=== PATIENT | female | born 1945 | race Caucasian/White ===

== ENCOUNTER 2016-07-20 19:25 | Emergency (ER) | payer MEDICARE, OTHER | END 2016-07-20 20:45 | disposition home or self-care (01) | LOC: ER1 19:25 | DX: S16.1XXA Strain of muscle, fascia and tendon at neck level, initial encounter (principal); X58.XXXA Exposure to other specified factors, initial encounter | CPT/HCPCS: 99283 ==

== ENCOUNTER 2016-07-23 19:45 | Emergency (ER) | payer MEDICARE, OTHER ==
[2016-07-23 21:08] LABS: HEMOGLOBIN 12.2 gm/dl (12.3-15.3); RED BLOOD COUNT 4.1 M/UL (4.00-5.10); WHITE BLOOD COUNT 7.8 K/UL (4.5-11.0)
== END 2016-07-24 00:02 | disposition home or self-care (01) ==
LOC: ER1 19:45
PROVIDERS: Family Medicine
DX: J11.1 Influenza due to unidentified influenza virus with other respiratory manifestations (principal); R50.9 Fever, unspecified; R26.2 Difficulty in walking, not elsewhere classified
CPT/HCPCS: 70450; 71010; 80053; 81001; 85025; 87040; 87086; 94664; 96374; 99283; J0696; J7030; J7050

== ENCOUNTER 2016-08-15 23:02 | Emergency (ER) | payer MEDICARE, OTHER ==
[2016-08-16 00:33] LABS: RED BLOOD COUNT 4.01 M/UL (4.00-5.10); WHITE BLOOD COUNT 10.8 K/UL (4.5-11.0)
== END 2016-08-16 02:00 | disposition home or self-care (01) ==
LOC: ER1 23:02
PROVIDERS: Physician Assistant
DX: K56.41 Fecal impaction (principal); I10 Essential (primary) hypertension; K21.9 Gastro-esophageal reflux disease without esophagitis; Z79.899 Other long term (current) drug therapy; Z79.82 Long term (current) use of aspirin
CPT/HCPCS: 36415; 74000; 80053; 81001; 83690; 85025; 99284

== ENCOUNTER 2016-10-03 20:44 | Emergency (ER) | payer MEDICARE, OTHER ==
[2016-10-03 22:34] LABS: HEMOGLOBIN 12.8 gm/dl (12.3-15.3); RED BLOOD COUNT 4.28 M/UL (4.00-5.10); WHITE BLOOD COUNT 7.2 K/UL (4.5-11.0)
== END 2016-10-04 03:35 | disposition home or self-care (01) ==
LOC: ER1 20:44
PROVIDERS: Emergency Medicine
DX: R07.89 Other chest pain (principal); M79.631 Pain in right forearm; E11.9 Type 2 diabetes mellitus without complications; I10 Essential (primary) hypertension
CPT/HCPCS: 36415; 71020; 73110; 80053; 82550; 82553; 83690; 83874; 84484; 85025; 93005; 99285

== ENCOUNTER 2016-10-19 18:19 | Inpatient (IN) | payer MEDICARE, OTHER ==
[~2016-10-19] VITALS: Ht 157.5 cm; Wt 70.5 kg
[2016-10-19 20:38] LABS: HEMOGLOBIN 12.7 gm/dl (12.3-15.3); RED BLOOD COUNT 4.22 M/UL (4.00-5.10); WHITE BLOOD COUNT 8.4 K/UL (4.5-11.0)
[2016-10-20] MEDS ORDERED: ASPIR-LOW81 MG PO (03:21)
[2016-10-20] MEDS ORDERED: METOPROLOL TART50 MG PO (03:22)
[2016-10-20] MEDS ORDERED: JANUVIA 100 MG100 MG PO (03:22)
[2016-10-20] MEDS ORDERED: RANEXA500 MG PO (03:23)
[2016-10-20] MEDS ORDERED: SIMVASTATIN20 MG PO (03:23)
[2016-10-20] MEDS ORDERED: NEURONTIN 400400 MG PO (03:24)
[2016-10-20] MEDS ORDERED: COLACE 100MG C100 MG PO (03:24)
[2016-10-20] MEDS ORDERED: SYNTHROID50 MCG PO (03:24)
[2016-10-20] MEDS ORDERED: PROCTOZONE-HC30 GM PR (03:25)
[2016-10-20] MEDS ORDERED: VENTOLIN HFA 66.7 GM INH (03:26)
[2016-10-20 07:12] LABS: HEMOGLOBIN 12.8 gm/dl (12.3-15.3); RED BLOOD COUNT 4.23 M/UL (4.00-5.10); WHITE BLOOD COUNT 9.3 K/UL (4.5-11.0)
[2016-10-20] MEDS ORDERED: HYDROCHLOROTHIA25 MG PO (20:31)
[2016-10-20] MEDS ORDERED: NORVASC 5 MG TAB5 MG PO (20:36)
== END 2016-10-20 20:50 | disposition home or self-care (01) | DRG 305 ==
LOC: ER1 18:19 → ZEROF 22:30 → M/S 22:30
PROVIDERS: Emergency Medicine; ADMIT Internal Medicine
DX: I16.0 Hypertensive urgency (principal); R07.9 Chest pain, unspecified; E78.5 Hyperlipidemia, unspecified; E11.9 Type 2 diabetes mellitus without complications; I10 Essential (primary) hypertension; Z90.710 Acquired absence of both cervix and uterus; Z90.49 Acquired absence of other specified parts of digestive tract; E05.90 Thyrotoxicosis, unspecified without thyrotoxic crisis or storm
CPT/HCPCS: ECHO; 36415; 71010; 80048; 80053; 80061; 82550; 82553; 82962; 83735; 83874; 83880; 84100; 84439; 84443; 84484; 85025; 93005; 93306; 96374; 96376; 99285; J1650

== ENCOUNTER 2020-08-08 16:35 | Inpatient (IN) | payer MEDICARE, OTHER ==
[~2020-08-08] VITALS: Ht 157.5 cm; Wt 59.0 kg
[~2020-08-08 16:35] MED LIST: ANTIVERT 25MG T25 MG PO; ASPIR-LOW81 MG PO; CLEOCIN HCL300 MG PO; COLACE 100MG C100 MG PO; DOXYCYCLINE HY100 M2 PO; FLEXERIL 10 MG10 MG PO; GLIPIZIDE ER5 MG PO; HYDROCHLOROTHIA25 MG PO; IBUPROFEN400 MG PO; IMDUR ER TAB 3030 MG PO; JANUVIA 100 MG100 MG PO; JANUVIA100 MG PO; LASIX20 MG PO; LEVEMIR FL100 UNIT/1 SQ; MEDROL DOSEPAK 24 MG PO; METOPROLOL SUCC50 MG PO; NEURONTIN400 MG PO; NORVASC 5 MG TAB5 MG PO; OMNICEF 300 MG300 MG PO; PREDNISONE20 MG PO; PROCTOZONE-HC30 GM PR; RANEXA500 MG PO; SIMVASTATIN20 MG PO; SYNTHROID50 MCG PO; TOPROL XL25 MG PO; VENTOLIN HFA 66.7 GM INH; ZANTAC300 MG PO; ZOFRAN 4 MG TAB4 MG PO
[2020-08-08 17:34] LABS: HEMOGLOBIN 10.5 gm/dl (12.3-15.3); RED BLOOD COUNT 3.68 M/UL (4.00-5.10); WHITE BLOOD COUNT 12.2 K/UL (4.5-11.0)
[2020-08-08 18:06] LABS: BUN/CREATININE RATIO 14 (0-10)
[2020-08-08] MEDS ORDERED: CRESTOR40 MG PO (20:18)
[2020-08-08] MEDS ORDERED: LOPRESSOR 25 MG25 MG PO (20:20)
[2020-08-08] MEDS ORDERED: METHIMAZOLE5 MG PO (20:26)
[2020-08-08] MEDS ORDERED: LASIX TAB 20 MG20 MG PO (20:27)
[2020-08-08] MEDS ORDERED: ISOSORBIDE MONO30 MG PO (20:27)
[2020-08-08] MEDS ORDERED: NOVOLIN N100 UNIT/2 SQ (20:28)
[2020-08-08] MEDS ORDERED: TRESIBA FL100 UNIT/1 SQ (20:29)
[2020-08-08] MEDS ORDERED: HYDROCODON-ACE1 EAC4 PO (20:33)
[2020-08-09 03:45] LABS: HEMOGLOBIN 9.8 gm/dl (12.3-15.3); RED BLOOD COUNT 3.51 M/UL (4.00-5.10); WHITE BLOOD COUNT 10.4 K/UL (4.5-11.0)
[2020-08-10 04:01] LABS: HEMOGLOBIN 9.1 gm/dl (12.3-15.3); RED BLOOD COUNT 3.26 M/UL (4.00-5.10); WHITE BLOOD COUNT 10.4 K/UL (4.5-11.0)
[2020-08-11 02:44] LABS: RED BLOOD COUNT 3.21 M/UL (4.00-5.10); WHITE BLOOD COUNT 10.1 K/UL (4.5-11.0)
[2020-08-12 03:29] LABS: HEMOGLOBIN 9.5 gm/dl (12.3-15.3); RED BLOOD COUNT 3.37 M/UL (4.00-5.10); WHITE BLOOD COUNT 12.6 K/UL (4.5-11.0)
[2020-08-13 06:31] LABS: HEMOGLOBIN 9.4 gm/dl (12.3-15.3); RED BLOOD COUNT 3.39 M/UL (4.00-5.10); WHITE BLOOD COUNT 11.4 K/UL (4.5-11.0)
[2020-08-14 05:56] LABS: HEMOGLOBIN 9.5 gm/dl (12.3-15.3); RED BLOOD COUNT 3.4 M/UL (4.00-5.10); WHITE BLOOD COUNT 9.6 K/UL (4.5-11.0)
[2020-08-14] MEDS ORDERED: ZOFRAN4 MG PO (17:17)
[2020-08-14] MEDS ORDERED: DEX4 GLUCOSE4 GM PO (17:17)
[2020-11-10] MEDS ORDERED: TRESIBA FL100 UNIT/1 SQ (10:20)
== END 2020-08-14 22:10 | disposition home or self-care (01) | DRG 660 ==
LOC: ER1 16:35 → CDU 18:43 → M/S 18:43
PROVIDERS: Emergency Medicine; Internal Medicine; Physician Assistant; Urology; ADMIT Internal Medicine
PROC: BT1D1ZZ Fluoroscopy of Right Kidney, Ureter and Bladder using Low Osmolar Contrast (ICD-10-PCS; 2020-08-14)
PROC: 0TJ98ZZ Inspection of Ureter, Via Natural or Artificial Opening Endoscopic (ICD-10-PCS; 2020-08-14)
PROC: 0T768DZ Dilation of Right Ureter with Intraluminal Device, Via Natural or Artificial Opening Endoscopic (ICD-10-PCS; principal; 2020-08-14 15:45)
DX: N13.6 Pyonephrosis (principal); E87.1 Hypo-osmolality and hyponatremia; I69.351 Hemiplegia and hemiparesis following cerebral infarction affecting right dominant side; N17.9 Acute kidney failure, unspecified; N18.30 Chronic kidney disease, stage 3 unspecified; R19.7 Diarrhea, unspecified; D63.1 Anemia in chronic kidney disease; E11.22 Type 2 diabetes mellitus with diabetic chronic kidney disease; Z20.822 Contact with and (suspected) exposure to COVID-19; M19.90 Unspecified osteoarthritis, unspecified site; J44.9 Chronic obstructive pulmonary disease, unspecified; E86.0 Dehydration; E05.90 Thyrotoxicosis, unspecified without thyrotoxic crisis or storm; K64.8 Other hemorrhoids; L89.159 Pressure ulcer of sacral region, unspecified stage; E11.649 Type 2 diabetes mellitus with hypoglycemia without coma; I12.9 Hypertensive chronic kidney disease with stage 1 through stage 4 chronic kidney disease, or unspecified chronic kidney disease; E78.5 Hyperlipidemia, unspecified; Z99.3 Dependence on wheelchair; Z79.4 Long term (current) use of insulin; Z98.51 Tubal ligation status; Z80.1 Family history of malignant neoplasm of trachea, bronchus and lung; Z90.710 Acquired absence of both cervix and uterus; Z90.49 Acquired absence of other specified parts of digestive tract; Z88.6 Allergy status to analgesic agent; Z79.82 Long term (current) use of aspirin; Z87.440 Personal history of urinary (tract) infections
CPT/HCPCS: 36415; 71045; 80048; 80053; 81001; 82436; 82550; 82553; 82570; 82728; 82962; 83036; 83540; 83550; 83735; 83874; 83935; 84133; 84156; 84300; 84439; 84443; 84484; 85025; 85027; 87040; 87086; 93005; 96365; 99285; C1769; C1894; C2617; J0696; J1100; J1650; J2405; J2704; J3010; J7030; J7120; Q9962; U0002

== ENCOUNTER 2020-08-16 13:09 | Emergency (ER) | payer MEDICARE, OTHER ==
[~2020-08-16 13:09] MED LIST changes: +CRESTOR40 MG PO; +DEX4 GLUCOSE4 GM PO; +HYDROCODON-ACE1 EAC4 PO; +ISOSORBIDE MONO30 MG PO; +LASIX TAB 20 MG20 MG PO; +LOPRESSOR 25 MG25 MG PO; +METHIMAZOLE5 MG PO; +NOVOLIN N100 UNIT/2 SQ; +TRESIBA FL100 UNIT/1 SQ; +ZOFRAN4 MG PO
[2020-08-16 15:31] LABS: HEMOGLOBIN 9.5 gm/dl (12.3-15.3); RED BLOOD COUNT 3.34 M/UL (4.00-5.10); WHITE BLOOD COUNT 15.4 K/UL (4.5-11.0)
[2020-11-10] MEDS ORDERED: TRESIBA FL100 UNIT/1 SQ (10:20)
== END 2020-08-16 17:15 | disposition home or self-care (01) ==
LOC: ER1 13:09
PROVIDERS: Family Medicine
DX: N20.1 Calculus of ureter (principal); E78.5 Hyperlipidemia, unspecified; E11.9 Type 2 diabetes mellitus without complications; I10 Essential (primary) hypertension; Z88.5 Allergy status to narcotic agent; D72.829 Elevated white blood cell count, unspecified; N18.9 Chronic kidney disease, unspecified; E87.6 Hypokalemia
CPT/HCPCS: 74019; 80053; 81001; 83690; 85025; 87086

== ENCOUNTER 2020-08-18 13:07 | Inpatient (IN) | payer MEDICARE, OTHER ==
[~2020-08-18] VITALS: Ht 157.5 cm; Wt 57.2 kg
[2020-08-18 15:02] LABS: HEMOGLOBIN 9.4 gm/dl (12.3-15.3); RED BLOOD COUNT 3.3 M/UL (4.00-5.10)
[2020-08-18 15:07] LABS: WHITE BLOOD COUNT 18.2 K/UL (4.5-11.0)
[2020-08-19 06:38] LABS: HEMOGLOBIN 8.8 gm/dl (12.3-15.3); RED BLOOD COUNT 3.09 M/UL (4.00-5.10); WHITE BLOOD COUNT 14.4 K/UL (4.5-11.0)
[2020-08-20 05:27] LABS: HEMOGLOBIN 8.5 gm/dl (12.3-15.3); RED BLOOD COUNT 3.01 M/UL (4.00-5.10); WHITE BLOOD COUNT 12.5 K/UL (4.5-11.0)
[2020-08-21 04:48] LABS: HEMOGLOBIN 8.3 gm/dl (12.3-15.3); RED BLOOD COUNT 2.92 M/UL (4.00-5.10); WHITE BLOOD COUNT 10.9 K/UL (4.5-11.0)
[2020-08-21] MEDS ORDERED: CHRONULAC20 GM/30 M PO (11:41)
[2020-08-21] MEDS ORDERED: FLORASTOR250 MG PO (11:55)
[2020-08-21] MEDS ORDERED: AMPICILLIN 500500 MG PO (11:55)
[2020-08-21] MEDS ORDERED: FERROUS SULFAT325 M2 PO (12:09)
--- NOTE | 2020-08-21 14:56 | NUR ---
PATIENT AND DAUGHTER DENIED NEED FOR HOME HEALTH OF ANY KIND, AND REFUSED TO HAVE HOME HEALTH.
[2020-11-10] MEDS ORDERED: TRESIBA FL100 UNIT/1 SQ (10:20)
== END 2020-08-21 14:28 | disposition home or self-care (01) | DRG 698 ==
LOC: ER1 13:07 → CDU 20:10 → M/S 08-19 08:35
PROVIDERS: Emergency Medicine; Internal Medicine; ADMIT Internal Medicine
DX: T83.592A Infection and inflammatory reaction due to indwelling ureteral stent, initial encounter (principal); A41.9 Sepsis, unspecified organism; N39.0 Urinary tract infection, site not specified; I69.351 Hemiplegia and hemiparesis following cerebral infarction affecting right dominant side; E44.0 Moderate protein-calorie malnutrition; Y83.8 Other surgical procedures as the cause of abnormal reaction of the patient, or of later complication, without mention of misadventure at the time of the procedure; E03.9 Hypothyroidism, unspecified; E66.9 Obesity, unspecified; K59.00 Constipation, unspecified; D50.9 Iron deficiency anemia, unspecified; L89.152 Pressure ulcer of sacral region, stage 2; E87.6 Hypokalemia; N18.9 Chronic kidney disease, unspecified; I12.9 Hypertensive chronic kidney disease with stage 1 through stage 4 chronic kidney disease, or unspecified chronic kidney disease; E78.5 Hyperlipidemia, unspecified; D63.1 Anemia in chronic kidney disease; E11.22 Type 2 diabetes mellitus with diabetic chronic kidney disease; G89.29 Other chronic pain; Z98.51 Tubal ligation status; Z98.890 Other specified postprocedural states; Z87.891 Personal history of nicotine dependence; Z80.1 Family history of malignant neoplasm of trachea, bronchus and lung; Z68.23 Body mass index [BMI] 23.0-23.9, adult
CPT/HCPCS: 36415; 71045; 74019; 80048; 80053; 81001; 82550; 82553; 82607; 82746; 82962; 83540; 83550; 83605; 83690; 83735; 83874; 83880; 84100; 84132; 84439; 84443; 84484; 85025; 85610; 85730; 86140; 87040; 87077; 87086; 87186; 96365; 97110-GP-CQ; 97162; 97166; 97530-GP-CQ; 99284; 99285; J0696; J1650; J3370; J7030; J7070; U0002

== ENCOUNTER 2020-09-16 23:11 | Inpatient (IN) | payer MEDICARE, OTHER ==
[~2020-09-16] VITALS: Ht 157.5 cm; Wt 57.6 kg
[~2020-09-16 23:11] MED LIST changes: +AMPICILLIN 500500 MG PO; +CHRONULAC20 GM/30 M PO; +FERROUS SULFAT325 M2 PO; +FLORASTOR250 MG PO
[2020-09-17 00:50] LABS: RED BLOOD COUNT 3.78 M/UL (4.00-5.10); WHITE BLOOD COUNT 10.5 K/UL (4.5-11.0)
[2020-09-17] MEDS ORDERED: IRON325 M1 PO (10:17)
[2020-09-17] MEDS ORDERED: VITAMIN C 500500 MG PO (10:21)
[2020-09-17] MEDS ORDERED: AUGMENTIN 500-500 MG PO (10:21)
[2020-09-19 05:05] LABS: HEMOGLOBIN 10.4 gm/dl (12.3-15.3); RED BLOOD COUNT 3.68 M/UL (4.00-5.10); WHITE BLOOD COUNT 7.7 K/UL (4.5-11.0)
[2020-09-19 05:09] LABS: BUN/CREATININE RATIO 16 (0-10)
[2020-09-19] MEDS ORDERED: BACTRIM DS TAB1 EACH PO (09:21)
[2020-09-19] MEDS ORDERED: NOVOLIN N100 UNIT/2 SQ (09:25)
[2020-09-19] MEDS ORDERED: TRESIBA FL100 UNIT/1 SQ (09:25)
[2020-09-19] MEDS ORDERED: LEVOFLOXACIN750 MG PO (09:36)
--- NOTE | 2020-09-19 12:54 | NUR ---
1254: VERBAL INDERSTANDING NOTED BY DAUGHTER MORIS GODINEZ, OF HOW TO CLEAN AROUND WANG CATHETER UNTIL REMOVED BY DR BLACKWOOD'S OFFICE.
[2020-11-10] MEDS ORDERED: TRESIBA FL100 UNIT/1 SQ (10:20)
== END 2020-09-19 13:18 | disposition home or self-care (01) | DRG 698 ==
LOC: ER1 23:11 → CDU 09-17 03:44 → MED SURG 4 09-17 23:01
PROVIDERS: Family Medicine; Internal Medicine; ADMIT Internal Medicine
DX: T83.592A Infection and inflammatory reaction due to indwelling ureteral stent, initial encounter (principal); J15.9 Unspecified bacterial pneumonia; N17.9 Acute kidney failure, unspecified; E87.1 Hypo-osmolality and hyponatremia; Z16.11 Resistance to penicillins; G93.40 Encephalopathy, unspecified; N13.6 Pyonephrosis; Y83.8 Other surgical procedures as the cause of abnormal reaction of the patient, or of later complication, without mention of misadventure at the time of the procedure; B95.2 Enterococcus as the cause of diseases classified elsewhere; E11.22 Type 2 diabetes mellitus with diabetic chronic kidney disease; E87.5 Hyperkalemia; R33.9 Retention of urine, unspecified; I12.9 Hypertensive chronic kidney disease with stage 1 through stage 4 chronic kidney disease, or unspecified chronic kidney disease; E05.90 Thyrotoxicosis, unspecified without thyrotoxic crisis or storm; N18.30 Chronic kidney disease, stage 3 unspecified; E66.9 Obesity, unspecified; I27.20 Pulmonary hypertension, unspecified; Z20.822 Contact with and (suspected) exposure to COVID-19; E78.5 Hyperlipidemia, unspecified; Z86.73 Personal history of transient ischemic attack (TIA), and cerebral infarction without residual deficits; Z79.4 Long term (current) use of insulin; Z90.710 Acquired absence of both cervix and uterus; Y92.89 Other specified places as the place of occurrence of the external cause; Z90.49 Acquired absence of other specified parts of digestive tract; Z98.51 Tubal ligation status; Z88.6 Allergy status to analgesic agent; Z80.3 Family history of malignant neoplasm of breast; Z80.0 Family history of malignant neoplasm of digestive organs; Z83.3 Family history of diabetes mellitus; Z83.6 Family history of other diseases of the respiratory system; Z84.89 Family history of other specified conditions; Z87.891 Personal history of nicotine dependence; Z68.23 Body mass index [BMI] 23.0-23.9, adult
CPT/HCPCS: 0240U; 36415; 71045; 74018; 80048; 80053; 81001; 82962; 83605; 83735; 84100; 85025; 85027; 87040; 87077; 87086; 87186; 93005; 96365; 96375; 97161; 97166; 99285; J0360; J1650; J2185

== ENCOUNTER 2020-11-09 18:49 | Inpatient (IN) | payer MEDICARE, OTHER ==
[~2020-11-09] VITALS: Ht 157.5 cm; Wt 57.2 kg
[~2020-11-09 18:49] MED LIST changes: +AUGMENTIN 500-500 MG PO; +BACTRIM DS TAB1 EACH PO; -CRESTOR40 MG PO; +IRON325 M1 PO; +LEVOFLOXACIN750 MG PO; -NEURONTIN400 MG PO; +VITAMIN C 500500 MG PO
[2020-11-09 20:04] LABS: HEMOGLOBIN 12.3 gm/dl (12.3-15.3); RED BLOOD COUNT 4.04 M/UL (4.00-5.10); WHITE BLOOD COUNT 12.4 K/UL (4.5-11.0)
[2020-11-09 21:11] LABS: BUN/CREATININE RATIO 15 (0-10)
[2020-11-10 02:24] LABS: HEMOGLOBIN 10.9 gm/dl (12.3-15.3); WHITE BLOOD COUNT 9.4 K/UL (4.5-11.0)
[2020-11-10 02:27] LABS: RED BLOOD COUNT 3.63 M/UL (4.00-5.10)
[2020-11-10 02:43] LABS: BUN/CREATININE RATIO 15 (0-10)
[2020-11-11 05:14] LABS: HEMOGLOBIN 11.9 gm/dl (12.3-15.3); RED BLOOD COUNT 3.97 M/UL (4.00-5.10); WHITE BLOOD COUNT 7.6 K/UL (4.5-11.0)
[2020-11-12 03:34] LABS: HEMOGLOBIN 11.1 gm/dl (12.3-15.3); RED BLOOD COUNT 3.71 M/UL (4.00-5.10); WHITE BLOOD COUNT 7.6 K/UL (4.5-11.0)
[2020-11-13 03:54] LABS: HEMOGLOBIN 11.4 gm/dl (12.3-15.3); RED BLOOD COUNT 3.83 M/UL (4.00-5.10); WHITE BLOOD COUNT 8.9 K/UL (4.5-11.0)
[2020-11-13] MEDS ORDERED: LEVOFLOXACIN750 MG PO (17:24)
--- NOTE | 2020-11-13 17:44 | NUR ---
PATIENT DISCHARGED WITH WANG CATHETER PER DR. LEON.
[2021-01-06] MEDS ORDERED: NEURONTIN800 MG PO (03:24)
== END 2020-11-13 18:37 | disposition home or self-care (01) | DRG 660 ==
LOC: ER1 18:49 → M/S 22:59 → CDU 22:59 → M/S 11-10 09:00
PROVIDERS: Internal Medicine; Physician Assistant; Urology; ADMIT Internal Medicine
PROC: 0T768DZ Dilation of Right Ureter with Intraluminal Device, Via Natural or Artificial Opening Endoscopic (ICD-10-PCS; 2020-11-13)
PROC: BT1D1ZZ Fluoroscopy of Right Kidney, Ureter and Bladder using Low Osmolar Contrast (ICD-10-PCS; 2020-11-13)
PROC: 0TP98DZ Removal of Intraluminal Device from Ureter, Via Natural or Artificial Opening Endoscopic (ICD-10-PCS; principal; 2020-11-13 14:00)
DX: T83.518A Infection and inflammatory reaction due to other urinary catheter, initial encounter (principal); N13.6 Pyonephrosis; I69.354 Hemiplegia and hemiparesis following cerebral infarction affecting left non-dominant side; N17.9 Acute kidney failure, unspecified; Z20.822 Contact with and (suspected) exposure to COVID-19; E11.22 Type 2 diabetes mellitus with diabetic chronic kidney disease; E78.5 Hyperlipidemia, unspecified; E86.0 Dehydration; R33.9 Retention of urine, unspecified; I12.9 Hypertensive chronic kidney disease with stage 1 through stage 4 chronic kidney disease, or unspecified chronic kidney disease; E05.90 Thyrotoxicosis, unspecified without thyrotoxic crisis or storm; N18.30 Chronic kidney disease, stage 3 unspecified; R26.9 Unspecified abnormalities of gait and mobility; F01.50 Vascular dementia, unspecified severity, without behavioral disturbance, psychotic disturbance, mood disturbance, and anxiety; R63.4 Abnormal weight loss; I27.20 Pulmonary hypertension, unspecified; N31.9 Neuromuscular dysfunction of bladder, unspecified; B95.2 Enterococcus as the cause of diseases classified elsewhere; Y84.6 Urinary catheterization as the cause of abnormal reaction of the patient, or of later complication, without mention of misadventure at the time of the procedure; E03.9 Hypothyroidism, unspecified; J44.9 Chronic obstructive pulmonary disease, unspecified; B96.20 Unspecified Escherichia coli [E. coli] as the cause of diseases classified elsewhere; B96.89 Other specified bacterial agents as the cause of diseases classified elsewhere; Z79.4 Long term (current) use of insulin; Z87.440 Personal history of urinary (tract) infections; Z95.1 Presence of aortocoronary bypass graft; Z90.710 Acquired absence of both cervix and uterus; Z98.51 Tubal ligation status; Z83.3 Family history of diabetes mellitus; Z79.82 Long term (current) use of aspirin; Z90.49 Acquired absence of other specified parts of digestive tract
CPT/HCPCS: 36415; 70450; 71045; 80048; 80053; 81001; 82550; 82553; 82962; 83605; 83690; 83735; 83874; 84100; 84439; 84443; 84484; 85025; 86140; 87077; 87086; 87186; 96365; 96376; 99285; C1769; C2617; G0378; J1100; J1650; J2001; J2185; J2405; J2704; J2710; J3010; J7120; Q9967; U0002

== ENCOUNTER 2020-12-25 13:27 | Emergency (ER) | payer MEDICARE, OTHER ==
[2020-12-25 15:02] LABS: HEMOGLOBIN 12.9 gm/dl (12.3-15.3); RED BLOOD COUNT 4.31 M/UL (4.00-5.10); WHITE BLOOD COUNT 13.8 K/UL (4.5-11.0)
[2020-12-25 15:23] LABS: BUN/CREATININE RATIO 14 (0-10)
[2020-12-25 16:05] LABS: BORDETELLA PARAPERTUSSIS Not Detected (Not Detectd); BORDETELLA PERTUSSIS Not Detected (Not Detectd); CHLAMYDIA PNEUMONIAE Not Detected (Not Detectd); CORONAVIRUS HKU1 Not Detected (Not Detectd); CORONAVIRUS NL63 Not Detected (Not Detectd); CORONAVIRUS OC43 Not Detected (Not Detectd); CORONOAVIRUS 229E Not Detected (Not Detectd); HUMAN METAPNEUMOVIRUS Not Detected (Not Detectd); INFLUENZA A Not Detected (Not Detectd); INFLUENZA B Not Detected (Not Detectd); MYCOPLASMA PNEUMONIAE Not Detected (Not Detectd); PARAINFLUENZA VIRUS 1 Not Detected (Not Detectd); PARAINFLUENZA VIRUS 2 Not Detected (Not Detectd); PARAINFLUENZA VIRUS 3 Not Detected (Not Detectd); PARAINFLUENZA VIRUS 4 Not Detected (Not Detectd); RESPIRATORY SYNCYTIAL VIRUS Not Detected (Not Detectd)
[2020-12-25 17:10] LABS: HUMAN RHINOVIRUS/ENTEROVIRUS DETECTED (Not Detectd); SARS-CoV-2 DETECTED (Not Detectd)
[2021-01-06] MEDS ORDERED: NEURONTIN800 MG PO (03:24)
== END 2020-12-25 18:47 | disposition home or self-care (01) ==
LOC: ER1 13:27
PROVIDERS: Emergency Medicine; Nurse Practitioner
DX: R05 Cough (principal); B97.4 Respiratory syncytial virus as the cause of diseases classified elsewhere; R53.83 Other fatigue; Z20.822 Contact with and (suspected) exposure to COVID-19; E11.9 Type 2 diabetes mellitus without complications; I10 Essential (primary) hypertension; J44.9 Chronic obstructive pulmonary disease, unspecified; E05.90 Thyrotoxicosis, unspecified without thyrotoxic crisis or storm; Z90.710 Acquired absence of both cervix and uterus; Z88.5 Allergy status to narcotic agent
CPT/HCPCS: 71045; 80053; 82550; 82553; 82962; 83874; 84484; 85025; 87633; 99285

== ENCOUNTER 2020-12-30 15:40 | Emergency (ER) | payer MEDICARE, OTHER ==
[2020-12-30 17:03] LABS: RED BLOOD COUNT 4.29 M/UL (4.00-5.10); WHITE BLOOD COUNT 12.4 K/UL (4.5-11.0)
[2020-12-30] MEDS ORDERED: LEVOFLOXACIN750 MG PO (19:08)
[2021-01-06] MEDS ORDERED: NEURONTIN800 MG PO (03:24)
== END 2020-12-30 21:07 | disposition home or self-care (01) ==
LOC: ER1 15:40
PROVIDERS: Emergency Medicine
DX: N30.90 Cystitis, unspecified without hematuria (principal); I12.9 Hypertensive chronic kidney disease with stage 1 through stage 4 chronic kidney disease, or unspecified chronic kidney disease; E11.22 Type 2 diabetes mellitus with diabetic chronic kidney disease; N18.9 Chronic kidney disease, unspecified; J44.9 Chronic obstructive pulmonary disease, unspecified; Z86.73 Personal history of transient ischemic attack (TIA), and cerebral infarction without residual deficits; Z20.822 Contact with and (suspected) exposure to COVID-19
CPT/HCPCS: 51702; 80053; 81001; 85025; 85610; 85730; 87086; 96365; 99284; J1956; J7030

== ENCOUNTER 2021-01-06 09:35 | Inpatient (IN) | payer MEDICARE, OTHER ==
[~2021-01-06] VITALS: Ht 160 cm; Wt 57.2 kg
[~2021-01-06 09:35] MED LIST changes: +NEURONTIN800 MG PO
[2021-01-06] MEDS ORDERED: TRESIBA FL100 UNIT/1 SQ (10:20)
[2021-01-06 10:28] LABS: HEMOGLOBIN 11.2 gm/dl (12.3-15.3); RED BLOOD COUNT 3.75 M/UL (4.00-5.10); WHITE BLOOD COUNT 12.7 K/UL (4.5-11.0)
[2021-01-06 11:01] LABS: BUN/CREATININE RATIO 11 (0-10)
[2021-01-06] MEDS ORDERED: VITAMIN C500 M4 PO (16:13)
[2021-01-06] MEDS ORDERED: FLORASTOR250 MG PO (16:13)
[2021-01-06] MEDS ORDERED: HYDROCODONE-AC1 EACH PO (16:15)
[2021-01-06] MEDS ORDERED: NYAMYC60 GM TOP (16:17)
[2021-01-06] MEDS ORDERED: LORATADINE10 MG PO (16:19)
[2021-01-06] MEDS ORDERED: ALBUTEROL1.25 MG/3 NEB (16:21)
[2021-01-06] MEDS ORDERED: SPIRONOLACTONE25 MG PO (16:23)
[2021-01-06] MEDS ORDERED: NOVOLIN N100 UNIT/2 SQ (16:25)
[2021-01-06] MEDS ORDERED: CRESTOR40 MG PO (20:18)
[2021-01-07 04:47] LABS: HEMOGLOBIN 10.7 gm/dl (12.3-15.3); RED BLOOD COUNT 3.55 M/UL (4.00-5.10)
[2021-01-07 04:49] LABS: WHITE BLOOD COUNT 7.8 K/UL (4.5-11.0)
[2021-01-09 07:12] LABS: HEMOGLOBIN 9.4 gm/dl (12.3-15.3); RED BLOOD COUNT 3.34 M/UL (4.00-5.10)
[2021-01-09 07:17] LABS: WHITE BLOOD COUNT 10.1 K/UL (4.5-11.0)
[2021-01-10] MEDS ORDERED: DECADRON6 MG PO (09:03)
[2021-01-10] MEDS ORDERED: CEFUROXIME500 MG PO (09:03)
[2021-01-11 07:45] LABS: HEMOGLOBIN 9.3 gm/dl (12.3-15.3); RED BLOOD COUNT 3.25 M/UL (4.00-5.10)
[2021-01-11 07:48] LABS: WHITE BLOOD COUNT 13.5 K/UL (4.5-11.0)
[2021-01-12 06:59] LABS: HEMOGLOBIN 10.1 gm/dl (12.3-15.3); RED BLOOD COUNT 3.39 M/UL (4.00-5.10); WHITE BLOOD COUNT 11.8 K/UL (4.5-11.0)
[2021-01-12] MEDS ORDERED: AUGMENTIN 875-1 EACH PO (15:33)
== END 2021-01-12 17:56 | disposition home or self-care (01) | DRG 177 ==
LOC: ER1 09:35 → CDU 14:50 → MED SURG 4 14:50
PROVIDERS: Physician Assistant; Physician Assistant Medical; ADMIT Internal Medicine
PROC: 3E0333Z Introduction of Anti-inflammatory into Peripheral Vein, Percutaneous Approach (ICD-10-PCS; 2021-01-06)
PROC: 8E0ZXY6 Isolation (ICD-10-PCS; principal; 2021-01-07)
DX: U07.1 COVID-19 (principal); J12.82 Pneumonia due to coronavirus disease 2019; G93.41 Metabolic encephalopathy; I69.354 Hemiplegia and hemiparesis following cerebral infarction affecting left non-dominant side; N13.6 Pyonephrosis; E11.22 Type 2 diabetes mellitus with diabetic chronic kidney disease; B95.2 Enterococcus as the cause of diseases classified elsewhere; I12.9 Hypertensive chronic kidney disease with stage 1 through stage 4 chronic kidney disease, or unspecified chronic kidney disease; R33.9 Retention of urine, unspecified; R31.0 Gross hematuria; N18.30 Chronic kidney disease, stage 3 unspecified; E05.90 Thyrotoxicosis, unspecified without thyrotoxic crisis or storm; E78.5 Hyperlipidemia, unspecified; Z87.440 Personal history of urinary (tract) infections; Z82.49 Family history of ischemic heart disease and other diseases of the circulatory system; Z90.49 Acquired absence of other specified parts of digestive tract; Z90.710 Acquired absence of both cervix and uterus; Z98.51 Tubal ligation status; Z98.890 Other specified postprocedural states; Z88.5 Allergy status to narcotic agent; Z80.9 Family history of malignant neoplasm, unspecified; Z79.82 Long term (current) use of aspirin; Z79.4 Long term (current) use of insulin; Z79.899 Other long term (current) drug therapy
CPT/HCPCS: 36415; 70450; 71045; 80048; 80053; 81001; 82550; 82553; 82962; 83605; 83735; 83874; 84484; 85025; 85027; 85610; 85652; 85730; 86140; 87040; 87086; 93005; 94664; 94760; 96374; 97110-GP-CQ; 97162; 97530-GP-CQ; 99284; 99285; J0696; J1100; J1335; J1644; J7030; U0002

== ENCOUNTER → 2021-02-03 | Outpatient (CLI) | payer MEDICARE, OTHER ==
[~2021-02-03] MED LIST changes: +ALBUTEROL1.25 MG/3 NEB; +AUGMENTIN 875-1 EACH PO; +CEFUROXIME500 MG PO; +CRESTOR40 MG PO; +DECADRON6 MG PO; +HYDROCODONE-AC1 EACH PO; +LORATADINE10 MG PO; +NYAMYC60 GM TOP; +SPIRONOLACTONE25 MG PO; +VITAMIN C500 M4 PO
== END ==
LOC: HEART 5 14:37
DX: B94.8 Sequelae of other specified infectious and parasitic diseases (principal); I08.3 Combined rheumatic disorders of mitral, aortic and tricuspid valves; R94.39 Abnormal result of other cardiovascular function study
CPT/HCPCS: 93306

== ENCOUNTER → 2021-05-05 | Outpatient (CLI) | payer MEDICARE, OTHER | LOC: LBRF 16:42 | DX: N39.0 Urinary tract infection, site not specified (principal) | CPT/HCPCS: 87086 ==

== ENCOUNTER → 2021-05-05 | Outpatient (CLI) | payer MEDICARE, OTHER | LOC: EXRD 13:00 | DX: N13.9 Obstructive and reflux uropathy, unspecified (principal) | CPT/HCPCS: 76856 ==

== ENCOUNTER 2021-05-12 13:27 | Inpatient (IN) | payer MEDICARE, OTHER ==
[~2021-05-12] VITALS: Ht 162.6 cm; Wt 54.4 kg
[2021-05-12 16:23] LABS: HEMOGLOBIN 7.6 gm/dl (12.3-15.3); RED BLOOD COUNT 4.43 M/UL (4.00-5.10); WHITE BLOOD COUNT 6.6 K/UL (4.5-11.0)
[2021-05-12 16:45] LABS: BUN/CREATININE RATIO 16 (0-10)
[2021-05-12] MEDS ORDERED: LISINOPRIL2.5 MG PO (22:45)
[2021-05-12] MEDS ORDERED: CIPROFLOXACIN500 M1 PO (22:45)
[2021-05-13 05:21] LABS: RED BLOOD COUNT 4.23 M/UL (4.00-5.10)
[2021-05-13 05:25] LABS: WHITE BLOOD COUNT 9.2 K/UL (4.5-11.0)
[2021-05-13 05:26] LABS: HEMOGLOBIN 12.5 gm/dl (12.3-15.3)
[2021-05-14 03:44] LABS: HEMOGLOBIN 11.5 gm/dl (12.3-15.3); RED BLOOD COUNT 3.99 M/UL (4.00-5.10); WHITE BLOOD COUNT 9.7 K/UL (4.5-11.0)
[2021-05-14 04:11] LABS: BUN/CREATININE RATIO 17 (0-10)
[2021-05-14 15:31] LABS: BUN/CREATININE RATIO 17 (0-10)
[2021-05-15 03:43] LABS: HEMOGLOBIN 12.4 gm/dl (12.3-15.3); RED BLOOD COUNT 4.21 M/UL (4.00-5.10); WHITE BLOOD COUNT 8.5 K/UL (4.5-11.0)
[2021-05-16 03:13] LABS: HEMOGLOBIN 12.1 gm/dl (12.3-15.3); RED BLOOD COUNT 4.15 M/UL (4.00-5.10)
--- NOTE | 2021-05-16 12:23 | NUR ---
INFORMED DR MATTA THAT DR JOHNSON SAW PATIENT LAST NIGHT AND HAS WRITTEN NOTE IN CHART FOR ONE WEEK FOLLOW UP
[2021-05-16] MEDS ORDERED: BACTRIM DS TAB1 EACH PO (12:49)
== END 2021-05-16 14:13 | disposition home or self-care (01) | DRG 698 ==
LOC: ER1 13:27 → CDU 18:37 → PROG CARE 05-13 13:58
PROVIDERS: Emergency Medicine; Physician Assistant; Physician Assistant Medical; ADMIT Internal Medicine
DX: T83.593A Infection and inflammatory reaction due to other urinary stents, initial encounter (principal); A41.89 Other specified sepsis; G93.41 Metabolic encephalopathy; Z20.822 Contact with and (suspected) exposure to COVID-19; N13.6 Pyonephrosis; N17.9 Acute kidney failure, unspecified; N30.01 Acute cystitis with hematuria; E83.42 Hypomagnesemia; E83.51 Hypocalcemia; I12.9 Hypertensive chronic kidney disease with stage 1 through stage 4 chronic kidney disease, or unspecified chronic kidney disease; N18.30 Chronic kidney disease, stage 3 unspecified; E03.9 Hypothyroidism, unspecified; E78.5 Hyperlipidemia, unspecified; I25.10 Atherosclerotic heart disease of native coronary artery without angina pectoris; E11.22 Type 2 diabetes mellitus with diabetic chronic kidney disease; E87.6 Hypokalemia; Y84.6 Urinary catheterization as the cause of abnormal reaction of the patient, or of later complication, without mention of misadventure at the time of the procedure; D63.1 Anemia in chronic kidney disease; B96.1 Klebsiella pneumoniae [K. pneumoniae] as the cause of diseases classified elsewhere; F03.90 Unspecified dementia, unspecified severity, without behavioral disturbance, psychotic disturbance, mood disturbance, and anxiety; L89.152 Pressure ulcer of sacral region, stage 2; J44.9 Chronic obstructive pulmonary disease, unspecified; Z86.73 Personal history of transient ischemic attack (TIA), and cerebral infarction without residual deficits; Z87.440 Personal history of urinary (tract) infections; Z79.01 Long term (current) use of anticoagulants; Z79.82 Long term (current) use of aspirin; Z79.4 Long term (current) use of insulin; Z90.49 Acquired absence of other specified parts of digestive tract; Z98.51 Tubal ligation status; Z88.6 Allergy status to analgesic agent; Z80.9 Family history of malignant neoplasm, unspecified; Z82.49 Family history of ischemic heart disease and other diseases of the circulatory system
CPT/HCPCS: 36415; 70450; 71045; 80053; 80202; 80307; 81001; 82330; 82550; 82553; 82803; 82962; 83605; 83735; 83874; 83880; 84100; 84484; 85025; 86140; 87040; 87077; 87086; 87186; 94760; 96374; 99285; C9113; G0378; J0610; J0692; J1650; J2185; J2310; J2405; J3370; J3475; J7030; J7070; U0002

== ENCOUNTER → 2021-06-05 | Outpatient (CLI) | payer MEDICARE, OTHER ==
[~2021-06-05] MED LIST changes: +CIPROFLOXACIN500 M1 PO; +LISINOPRIL2.5 MG PO
== END ==
LOC: LAB 12:47
PROVIDERS: Internal Medicine Nephrology
DX: N18.31 Chronic kidney disease, stage 3a (principal)
CPT/HCPCS: 36415; 80048

== ENCOUNTER → 2021-06-08 | Outpatient (CLI) | payer MEDICARE, OTHER | LOC: LAB 11:23 | PROVIDERS: Internal Medicine Nephrology | DX: N18.31 Chronic kidney disease, stage 3a (principal) | CPT/HCPCS: 36415; 80048 ==

== ENCOUNTER 2021-08-30 20:21 | Emergency (ER) | payer MEDICARE, OTHER | END 2021-08-30 21:46 | disposition left against medical advice (07) | LOC: ER1 20:21 | DX: Z53.21 Procedure and treatment not carried out due to patient leaving prior to being seen by health care provider (principal) ==

== ENCOUNTER 2021-08-31 23:49 | Emergency (ER) | payer MEDICARE, OTHER ==
[2021-09-01 01:47] LABS: HEMOGLOBIN 9.7 gm/dl (12.3-15.3); RED BLOOD COUNT 3.02 M/UL (4.00-5.10); WHITE BLOOD COUNT 10.5 K/UL (4.5-11.0)
[2021-09-01] MEDS ORDERED: KEFLEX CAP 250250 MG PO (03:45)
[2021-09-02 01:25] LABS: CANDIDA ALBICANS Not Detected (Negative); CANDIDA KRUSEI Not Detected (Negative); CANDIDA TROPICALIS Not Detected (Negative); ESCHERICHIA COLI Not Detected (Negative); HAEMOPHILUS INFLUENZAE Not Detected (Negative); KLEBSIELLA OXYTOCA Not Detected (Negative); KLEBSIELLA PNEUMONIAE Not Detected (Negative); KPC-CARBAPENEM-RESISTANCE GENE Not Detected (Negative); PROTEUS Not Detected (Negative); PSEUDOMONAS AERUGINOSA Not Detected (Negative); SERRATIA MARCESANS Not Detected (Negative); STAPHYLOCOCCUS AUREUS Not Detected (Negative); STREP AGALACTIAE (GROUP B) Not Detected (Negative); STREP PYOGENES (GROUP A) Not Detected (Negative); STREPTOCOCCUS Not Detected (Negative); vanA/B (VANCOMYCIN RESIST GENE Not Detected (Negative)
[2021-09-02 03:42] LABS: STAPHYLOCOCCUS DETECTED (Negative)
== END 2021-09-01 05:20 | disposition home or self-care (01) ==
LOC: ER1 23:49
PROVIDERS: Family Medicine
DX: R31.9 Hematuria, unspecified (principal); E10.9 Type 1 diabetes mellitus without complications; I51.9 Heart disease, unspecified
CPT/HCPCS: 74018; 80053; 81001; 83690; 85025; 85610; 87040; 87150; 99284

== ENCOUNTER 2021-09-01 19:50 | Emergency (ER) | payer MEDICARE, OTHER ==
[~2021-09-01 19:50] MED LIST changes: +KEFLEX CAP 250250 MG PO
[2021-09-01 21:35] LABS: HEMOGLOBIN 9.3 gm/dl (12.3-15.3); RED BLOOD COUNT 2.9 M/UL (4.00-5.10)
== END 2021-09-02 02:26 | disposition short-term general hospital (02) ==
LOC: ER1 19:50
PROVIDERS: Family Medicine
DX: R31.9 Hematuria, unspecified (principal); R50.9 Fever, unspecified; E11.9 Type 2 diabetes mellitus without complications; Z20.822 Contact with and (suspected) exposure to COVID-19
CPT/HCPCS: 80053; 81001; 85025; 87077; 87086; 87186; 93005; 99285; U0002

== ENCOUNTER 2021-10-16 10:56 | Emergency (ER) | payer OTHER, MEDICARE ==
[2021-10-16 12:12] LABS: HEMOGLOBIN 12.8 gm/dl (12.3-15.3); RED BLOOD COUNT 4.2 M/UL (4.00-5.10); WHITE BLOOD COUNT 11.8 K/UL (4.5-11.0)
[2021-10-16 12:47] LABS: BUN/CREATININE RATIO 12 (0-10)
[2021-10-16] MEDS ORDERED: HYDROCODON-ACE1 EAC4 PO (17:11)
== END 2021-10-16 21:00 | disposition home or self-care (01) ==
LOC: ER1 10:56
PROVIDERS: Emergency Medicine
DX: S22.31XA Fracture of one rib, right side, initial encounter for closed fracture (principal); S22.20XA Unspecified fracture of sternum, initial encounter for closed fracture; E11.9 Type 2 diabetes mellitus without complications; I10 Essential (primary) hypertension; J44.9 Chronic obstructive pulmonary disease, unspecified; G91.9 Hydrocephalus, unspecified; V49.50XA Passenger injured in collision with unspecified motor vehicles in traffic accident, initial encounter; Y92.410 Unspecified street and highway as the place of occurrence of the external cause
CPT/HCPCS: 70450; 71045; 71260; 72125; 73562; 80053; 82550; 82553; 84484; 85025; 93005; 99284; Q9967

== ENCOUNTER 2022-01-29 13:34 | Inpatient (IN) | payer MEDICARE, OTHER ==
[~2022-01-29] VITALS: Ht 162.6 cm; Wt 45.4 kg
[~2022-01-29 13:34] MED LIST changes: +ADULT LOW DOSE81 MG PO; -ASPIR-LOW81 MG PO; -HYDROCODONE-AC1 EACH PO
[2022-01-29 14:09] LABS: HEMOGLOBIN 12.1 gm/dl (12.3-15.3); RED BLOOD COUNT 4.17 M/UL (4.00-5.10); WHITE BLOOD COUNT 10.9 K/UL (4.5-11.0)
[2022-01-29] MEDS ORDERED: FERROUS SULFAT325 MG PO (17:08)
[2022-01-29] MEDS ORDERED: ALBUTEROL1.25 MG/3 INH (17:11)
[2022-01-29] MEDS ORDERED: GLUCOSE4 GM PO (17:12)
[2022-01-29] MEDS ORDERED: VITAMIN B-121000 MC3 PO (17:13)
[2022-01-30 06:18] LABS: HEMOGLOBIN 11.6 gm/dl (12.3-15.3); RED BLOOD COUNT 4.14 M/UL (4.00-5.10); WHITE BLOOD COUNT 10.7 K/UL (4.5-11.0)
[2022-01-31 05:12] LABS: HEMOGLOBIN 11.9 gm/dl (12.3-15.3); RED BLOOD COUNT 4.11 M/UL (4.00-5.10); WHITE BLOOD COUNT 10.8 K/UL (4.5-11.0)
[2022-01-31] MEDS ORDERED: LEVOFLOXACIN500 MG PO (11:10)
[2022-01-31] MEDS ORDERED: MIRALAX17 GM PO (11:54)
== END 2022-01-31 14:04 | disposition home or self-care (01) | DRG 690 ==
LOC: ER1 13:34 → CDU 16:13 → MED SURG 4 17:38
PROVIDERS: Physician Assistant Medical; ADMIT Internal Medicine
DX: N39.0 Urinary tract infection, site not specified (principal); E78.5 Hyperlipidemia, unspecified; I25.10 Atherosclerotic heart disease of native coronary artery without angina pectoris; E11.22 Type 2 diabetes mellitus with diabetic chronic kidney disease; I12.9 Hypertensive chronic kidney disease with stage 1 through stage 4 chronic kidney disease, or unspecified chronic kidney disease; N18.30 Chronic kidney disease, stage 3 unspecified; Z96.0 Presence of urogenital implants; B95.2 Enterococcus as the cause of diseases classified elsewhere; Z86.73 Personal history of transient ischemic attack (TIA), and cerebral infarction without residual deficits; Z79.899 Other long term (current) drug therapy; Z90.710 Acquired absence of both cervix and uterus; Z98.49 Cataract extraction status, unspecified eye; Z98.51 Tubal ligation status; Z88.5 Allergy status to narcotic agent; Z82.49 Family history of ischemic heart disease and other diseases of the circulatory system; Z83.3 Family history of diabetes mellitus
CPT/HCPCS: 36415; 70450; 71045; 80048; 80053; 80202; 81001; 82962; 83605; 83690; 83735; 84439; 84443; 85025; 85027; 87040; 87086; 94640; 94760; 96374; 96375; 97162; 97530; 99285; J2185; J3370; J7070